=== PATIENT | male | born 1980 | race Caucasian/White ===

== ENCOUNTER 2020-08-24 09:49 | Inpatient (IN) | payer OTHER ==
[~2020-08-24] VITALS: Ht 180.3 cm; Wt 109.8 kg
[2020-08-24 09:52] VITALS: BP 126/86
[2020-08-24 10:57] LABS: URINE BILIRUBIN NEGATIVE (Negative); URINE BLOOD NEGATIVE (Negative); URINE CLARITY CLEAR; URINE COLOR YELLOW; URINE GLUCOSE-RANDOM* NEGATIVE (Negative); URINE KETONES NEGATIVE (Negative); URINE LEUKOCYTES-REFLEX NEGATIVE (Negative); URINE NITRITE-REFLEX NEGATIVE (Negative); URINE PROTEIN (DIPSTICK) NEGATIVE (Negative); URINE SPECIFIC GRAVITY >= 1.030 (1.005-1.035); URINE UROBILINOGEN 0.2 E.U./dl (0.2-1.0)
[2020-08-24 11:00] LABS: ABSOLUTE NEUTROPHILS 5.9 thou/uL (1.4-8.2); BASOPHILS 0.7 % (0.0-2.0); EOSINOPHILS 1.8 % (0.0-3.0); HEMATOCRIT 46.2 % (42.0-52.0); LYMPHOCYTES 19.2 % (24.0-44.0); MCH 30.6 pg (26.0-34.0); MCHC 34.7 g/dL (28.0-37.0); MCV 88.3 fL (80.0-100.0); MONOCYTES 15.4 % (1.0-8.0); PLATELET COUNT 334 thou/uL (150-400); POLYS 62.9 % (36.0-66.0); RBC 5.23 mil/uL (4.50-6.00); RDW 13.2 % (10.5-14.5); WBC 9.4 thou/uL (4.0-11.0)
[2020-08-24 11:09] LABS: CALCIUM 9.5 mg/dL (8.5-10.1); CREATININE 0.9 mg/dL (0.7-1.3); POTASSIUM 4.2 mmol/L (3.5-5.1)
[2020-08-24 11:15] LABS: ALBUMIN 3.9 g/dL (3.4-5.0); TOTAL BILIRUBIN 0.5 mg/dL (0.2-1.0); TOTAL PROTEIN 8.4 g/dL (6.4-8.2)
[2020-08-24 14:26] VITALS: BP 121/67
[2020-08-24 14:38] VITALS: BP 112/73
--- NOTE | 2020-08-24 15:10 | NUR ---
ASSESSMENT: CM WENT TO VISIT WITH PATIENT BUT HE IS OUT OF THE ROOM. PT IS A NEW ADMIT DUE TO POSSILE PERIANAL ABSESS. PATIENT IS LISTED PATIENT PAY. PT LEFT [facility] FOR PATIENT AT THE BEDSIDE INCASE HE IS NEEDING FOLLOW UP CARE. [facility] WILL SCREEN PATIENT. CM WILL CONTINUE TO FOLLOW.
[2020-08-24 18:08] VITALS: BP 121/83
--- NOTE | 2020-08-24 18:46 | NUR ---
ASSUMED PT CARE AROUND 1800. I&D OF PERIRECTAL ABCESS. ALSO HAD HEMORRHOIDECTOMY DONE. PAIN OF 6 NOTE, PAIN MEDICINE GIVEN. VSS. PATIENT TOLERATING LIQUIDS WELL. DIDN'T WANT ANYTHING TO EAT NOW.IV LEFT AC, LR RUNNING AT 100MLS/HR.SCDS/TEDS ON. ON REGULAR DIET. FALL EDUCATION GIVEN. FALL PRECAUTION IN PLACE. WILL CONTINUE TO MONITOR.
[2020-08-24 21:00] VITALS: BP 109/64
--- NOTE | 2020-08-24 22:35 | NUR ---
ASSUMED PT CARE AT AROUND 1915 HRS. PT OBSERVED IN BED LAYING ON HIS LEFT SIDE, USING HIS IPAD. HE DOES NOT APPEAR TO BE IN ANY ACUTE DISTRESS. AFEBRILE. ROOM AIR.REPORTS PAIN WHEN SHIFTING WEIGHT IN BED. I OBSERVED THE PACKING ON HIS BOTTOM TO BE C/D/I, MESH PANTIES ON.PT DENIES NEED FOR ANYTHING TO EAT. HE WILL CALL WITH NEEDS. WILL CONTINUE WITH POC TILL EOS.
[2020-08-25 03:30] VITALS: BP 102/57
[2020-08-25 07:31] VITALS: BP 139/86
[2020-08-25 16:03] VITALS: BP 101/60
--- NOTE | 2020-08-25 17:10 | O ---
[facility] [place] [address] OPERATIVE REPORT Name: WISAM HAMILTON Room #: 434-P ADM IN M.R.#: [id number] Admission: 08/24/20 Attend Phys: Toan Varner, Discharge: Date of : 84 Report #: [id number] THIS REPORT FOR: cc: FAM - No family physician/PCP FAM - No family physician/PCP Toan Varner MD ~ DOC #: [id number] Toan Varner MD DATE OF SERVICE: 08/24/2020 PREOPERATIVE DIAGNOSIS: Perirectal abscess. POSTOPERATIVE DIAGNOSIS: Perirectal abscess. OPERATION: Incision and drainage of perirectal abscess. SURGEON: Toan Varner MD TYPE OF ANESTHESIA: General. ESTIMATED BLOOD LOSS: Minimal. SPECIMENS: External hemorrhoid. DESCRIPTION OF PROCEDURE: After informed consent was obtained, the patient was brought to the operating room and placed supine. SCDs were placed and working. Preoperative antibiotics were administered. General anesthesia was induced. The patient was placed in the lithotomy position. The perianal area was prepped and draped in the usual sterile fashion with Betadine. Digital rectal exam was performed. This did not demonstrate any masses. There was a small area of pus that was draining from an opening in the right anterior quadrant approximately at the level of the anal verge. This was probed with a lacrimal probe. I then explore this area with a hemostat and was able to drain out the pus. There was an external hemorrhoid there as well and this was ligated using the LigaSure device. There was excellent hemostasis. The area was then copiously irrigated with normal saline. The area was then packed with iodoform gauze. Sterile dressings were applied. COMPLICATIONS: None. DISPOSITION: The patient was taken to recovery in satisfactory condition. MD CATY Mcclellan/DELBERT [address] [id number] OPERATIVE REPORT Name: WISAM HAMILTON Room #: 434-P [facility]#: [id number] Admission: 08/24/20 Attend Phys: Toan Varner, Discharge: Date of : 84 Report #: [id number] <ELECTRONICALLY SIGNED> By: Toan Varner MD 08/25/20 1710 1603 1849 Toan Varner MD /nt
--- NOTE | 2020-08-25 18:34 | NUR ---
patient alert and orinted x4, up ad vamsi, packing removed by physican replaced with 4x4s, sitz bath used and patient educated how to use it, patient voiding per urinal, vitals stable, and afbreile. Call light with in reach. Will continue to monitor.
[2020-08-25 19:20] VITALS: BP 105/62
--- NOTE | 2020-08-26 00:57 | NUR ---
ASSUMED PT CARE AT 1900.PT WAS OBSERVED LYING ON HIS BED IN HIS COMPUTER AT SHIFT CHANGE.PT C/O PAIN ON HIS BUTTOCK,MANAGED WITH MED.PT UP ADLIB IN THE ROOM.DRG REINFORCED.PT SLEEPING ON HIS BED AT THIS TIME.CALL LIGHT WITHIN REACH.
[2020-08-26 07:10] VITALS: BP 106/60
[2020-08-26] MEDS ORDERED: NORCO7.5 PO (14:15)
[2020-08-26] MEDS ORDERED: FLAGYL500 M1 PO (14:15)
[2020-08-26] MEDS ORDERED: CIPRO250 M2 PO (14:15)
[2020-08-26 14:18] VITALS: BP 106/60
--- NOTE | 2020-08-26 15:44 | NUR ---
Pt discharged per dr order. No concerns expressed.
--- NOTE | 2020-08-28 13:13 | PATH ---
[facility] [address] [place] [address] PATHOLOGY RPT PROCEDURE Name: ALFONSOWISAM Room #: 434-P [facility] IN M.R.#: [id number] Admission: 08/24/20 Date of : 84 Discharge: 08/26/20 Report #: [id number] Path Case #: [id number] [facility] Accession Number: [id number] . 01 Material submitted: . hemorrhoids - HEMORRHOID . 01 Clinical history: . INCISION AND DRAINAGE TONIA-RECTAL A PERIRECTAL ABSCESS . 02 Diagnosis: Hemorrhoid, hemorrhoidectomy: - Markedly dilated and congested variceal veins consistent with hemorrhoids. - Overlying squamous epithelium showing hyperkeratosis and reactive changes. . (IUV:mml; 08/27/2020) QLM 08/27/2020 1658 Local . 02 Electronically signed: . Bethanie Davis MD, Pathologist NPI- [id number] . 01 Gross description: . Received in formalin labeled "John, Wisam, hemorrhoid" is a portion of cortez-brown wrinkled skin or mucosa measuring 1.2 x 1.0 x 0.8 cm. The specimen is trisected to reveal a cortez-red homogeneous cut surface. The specimen is submitted entirely in cassette A1. [place] 08/26/2020[place] [facility] 08/26/2020 1306 Local . 02 Pathologist provided ICD-10: K61.1 . 02 CPT . 732218 Specimen Comment: A courtesy copy of this report has been sent to [phone] Specimen Comment: Report sent to Performed at: [address], [place] [id number] MD Thomas Brooks MD Phone: [phone] Performed at: [address] [id number] MD Bethanie Davis MD Phone: [phone]
== END 2020-08-26 15:48 | disposition home or self-care (01) | DRG 346 ==
LOC: ER 09:49 → EROBS 13:58 → 4S 14:50
PROVIDERS: Emergency Medicine; ADMIT Surgery; ATTEND Surgery
PROC: 0D9P0ZZ Drainage of Rectum, Open Approach (ICD-10-PCS; principal; 2020-08-24)
DX: K61.1 Rectal abscess (principal); K61.0 Anal abscess; F17.210 Nicotine dependence, cigarettes, uncomplicated; K64.4 Residual hemorrhoidal skin tags; Z20.822 Contact with and (suspected) exposure to COVID-19
CPT/HCPCS: 10195; 50010; 50386; 52190